=== PATIENT | female | born 1965 | race Caucasian/White ===

== ENCOUNTER → 2016-05-12 | Outpatient (CLI) | payer OTHER ==
[~2016-05-12] MED LIST: ALBUAER3 INH; ALLE10TA PO; CETI5SOL PO; COLY4000S PO; GEMF600T PO; INUL1CHW2; LEVO50TA4 PO; MELO7.5T4 PO; MOBI7.5T PO; OMEG5CAP; PSYLPOW4 PO; VITA100017 PO
[2016-05-12 08:06] LABS: BACTERIA, URINE RARE /hpf; BLOOD, URINE TRACE (NEG); COMMENT (UR) CULT NOT INDICATED; CULTURE IF INDICATED CULT NOT INDICATED; GLUCOSE,URINE NEG (NEG); KETONE, URINE NEG (NEG); MUCUS URINE FEW /lpf (OCC); NITRITE,URINE NEG (NEG); SQUAMOUS EPITHELIAL CELL URINE 4 /hpf (0-5); URINE COLOR YELLOW (YELLW/STRAW)
[2016-05-12 08:24] LABS: HDL CHOLESTEROL 27.6 MG/DL (40.0-60.0)
== END ==
LOC: CLAB 07:25
PROVIDERS: ATTEND Family Medicine
DX: E78.1 Pure hyperglyceridemia (principal); E03.9 Hypothyroidism, unspecified; R35.0 Frequency of micturition
CPT/HCPCS: 36415; 80061; 81001; 84443

== ENCOUNTER → 2016-10-13 | Outpatient (CLI) | payer OTHER ==
[~2016-10-13] MED LIST changes: -CETI5SOL PO; -COLY4000S PO; -INUL1CHW2; -MOBI7.5T PO; -OMEG5CAP; -VITA100017 PO
[2016-10-13 08:51] LABS: HDL CHOLESTEROL 28.6 MG/DL (40.0-60.0)
== END ==
LOC: CLAB 07:31
PROVIDERS: ATTEND Nurse Practitioner Family
DX: E78.1 Pure hyperglyceridemia (principal); E03.9 Hypothyroidism, unspecified
CPT/HCPCS: 36415; 80061; 84443

== ENCOUNTER 2016-10-19 13:54 | Emergency (ER) | payer OTHER ==
[~2016-10-19] VITALS: Ht 157.5 cm; Wt 60.5 kg
[2016-10-19 13:56] VITALS: BP 140/70; PULSE 108; RESP 20; TEMP 99.2; O2SAT 99
[2016-10-28] MEDS ORDERED: AMOX500T PO (09:17)
[2016-10-28] MEDS ORDERED: FLUT1SPR5 EACH NARE (09:18)
== END 2016-10-19 15:43 | disposition left against medical advice (07) ==
LOC: NED 13:54
DX: R05 Cough (principal); Z53.21 Procedure and treatment not carried out due to patient leaving prior to being seen by health care provider
CPT/HCPCS: 99281